=== PATIENT | female | born 1930 | race Caucasian/White ===

== ENCOUNTER → 2019-01-28 | Outpatient (REF) | payer MEDICARE, OTHER ==
[2019-01-28 18:49] LABS: APPEARANCE, URINE CLEAR (CLEAR); BACTERIA, URINE AUTO NEGATIVE (NEGATIVE); BILIRUBIN, URINE AUTO NEGATIVE (NEGATIVE); BLOOD, URINE BLOOD 1+ (NEGATIVE); COLOR, URINE YELLOW (YELLOW); GLUCOSE, URINE (UA) AUTO 3+ mg/dL (NEGATIVE); KETONE, URINE AUTO NEGATIVE (NEGATIVE); LEUKOCYTE ESTERASE, URINE AUTO NEGATIVE (NEGATIVE); MUCUS, URINE SMALL (NEGATIVE); NITRITE, URINE AUTO NEGATIVE (NEGATIVE); PROTEIN, URINE AUTO NEGATIVE (NEGATIVE); RBC, URINE AUTO 3 /HPF (0-3); SPECIFIC GRAVITY URINE AUTO 1.017 (1.002-1.035); SQUAMOUS EPITHELIAL CELL UR AU 1 /HPF (0-6); UROBILINOGEN, URINE AUTO 0.2 mg/dL (0.0-2.0); WBC, URINE AUTO 7 /HPF (0-3)
== END ==
LOC: M LAB REF 17:56
PROVIDERS: ATTEND Obstetrics & Gynecology
DX: N39.46 Mixed incontinence (principal); N81.12 Cystocele, lateral; N81.6 Rectocele

== ENCOUNTER → 2019-08-01 | Outpatient (CLI) | payer MEDICARE, OTHER ==
[~2019-08-01] MED LIST: ASPI81TA85 PO; ATEN50TA2 PO; ATOR1TAB21 PO; ESOM40CA35 PO; METF10004 PO; MULTCAP PO
== END ==
LOC: M LABSMTC 09:38
PROVIDERS: ATTEND Anesthesiology
DX: Z01.818 Encounter for other preprocedural examination (principal); Z11.59 Encounter for screening for other viral diseases
CPT/HCPCS: C9803; U0003

== ENCOUNTER 2019-08-04 09:06 | Day surgery (SDC) | payer MEDICARE, OTHER ==
[~2019-08-04] VITALS: Ht 160 cm; Wt 97.1 kg
[~2019-08-04 09:06] MED LIST changes: +LIDOCAINE 2% 100MG/5ML SDV (FOR ANES.) As Ordered ONE; +LR 1,000 ML IV ONE; +MIDAZOLAM INJ 2MG/2ML VIAL (J2250 PER 1MG) As Ordered ONE; +ROCURONIUM BROMIDE 50 MG/5 ML VIAL As Ordered ONE; +fentaNYL 250 MCG/5 ML INJECTION (J3010) As Ordered ONE; +propofoL 200 MG/20 ML VIAL As Ordered ONE
[2019-08-04] MEDS ORDERED: dexameTHASONE 4 MG/ML 1ML VIAL (J1100 PER 1MG) As Ordered ONE (11:35)
[2019-08-04] MEDS ORDERED: VASOPRESSIN INJ 20 UNITS/ML VIAL As Ordered ONE (11:38)
[2019-08-04] MEDS ORDERED: ceFAZolin 2 GM/D5W 50 ML IV BAG (J0690 PER 500MG) As Ordered ONE (12:16)
[2019-08-04] MEDS ORDERED: ePHEDrine SULFATE 25 MG/5 ML(5MG/ML) SYRINGE As Ordered ONE (12:19)
[2019-08-04] MEDS ORDERED: ACETAMINOPHEN 1000MG 100ML IV BTL (OFIRMEV) (J0131 PER 10MG) As Ordered ONE (12:21)
[2019-08-04] MEDS ORDERED: KETOROLAC 60 MG/2 ML VIAL As Ordered ONE (12:33)
[2019-08-04] MEDS ORDERED: ONDANSETRON 4MG/2ML VIAL As Ordered ONE (12:35)
[2019-08-04] MEDS ORDERED: ONDANSETRON 4MG/2ML VIAL IV PRN (13:15)
[2019-08-04] MEDS ORDERED: NORCO, ANEXSIA 5/325MG TABLET (HYDROcodone/ACETAMINOPHEN) PO PRN (13:15)
[2019-08-04] MEDS ORDERED: LR 1,000 ML IV SCH (13:15)
[2019-08-04] MEDS ORDERED: oxyCODONE 5MG TAB PO PRN (13:15)
[2019-08-04] MEDS ORDERED: fentaNYL 100 MCG/2 ML INJECTION (J3010) IV PRN (13:15)
[2019-08-04] MEDS ORDERED: IBUPROFEN 600 MG TAB PO PRN (13:15)
[2019-08-04 15:00] VITALS: BP 179/92
--- NOTE | 2019-08-09 11:57 | RO ---
DATE OF PROCEDURE: 08/04/2019 PREPROCEDURE DIAGNOSIS: Incontinence. POSTPROCEDURE DIAGNOSIS: Incontinence. PROCEDURE: Dosera mid urethral sling. This was retropubically placed bottom to top and cystourethroscopy. SURGEON: Dr. Ayse Xiao. HEEL LAYER: None. ANESTHESIA: Local monitored anesthesia, (LMA). DESCRIPTION OF PROCEDURE: Nury was brought to the operating room where sufficient LMA anesthesia was induced and she was prepped, draped in position in the usual sterile fashion with the Ryegate retractor placed. The anterior aspect of the vagina evaluated, carefully injected with diluted vasopressin solution and then a midline approximately 1.5 incision was made approximately 1 cm cephalad from the urethral meatus because this was a natural fold in the tissues. The Strully scissors were used to dissect laterally for the tracts for the trocar for the Dosera. Then after re-evaluating anatomical landmarks, we carefully placed first the right then the left side scoping the patient in between placement of each trocar. The after we had confirmed absence of injury to the bladder and the normal internal bladder contour and appearance with only a small cystocele of which the patient was aware of and did not want repaired. We went ahead and brought out each arm of the Dosera using a #8 Lindsay as a spacer and the red rubber stylette but then we brought it up a little bit snugger on that because the patient did have a little bit of weakness. We were careful about doing attention-free placement with the spacer but making sure we had that in exactly the position we wanted and then we removed the sheathing and trimmed the mesh, and of course, then removed the spacer. We closed the vaginal wound with #2-0 Vicryl and the suprapubic wounds with #3-0 Vicryl and we had good approximation of hemostasis both layers and the procedure was then ended. Estimated blood loss for the procedure about 10 mL. Fluid replacement was Crystalloid. Complication None: CONDITION AND DISPOSITION: Nury tolerated the procedure well and was recovering in the recovery room in good condition.
== END 2019-08-04 15:09 | disposition home or self-care (01) ==
LOC: M SDC 09:06
PROVIDERS: ATTEND Obstetrics & Gynecology
DX: R32 Unspecified urinary incontinence (principal); I10 Essential (primary) hypertension; E78.5 Hyperlipidemia, unspecified; E11.9 Type 2 diabetes mellitus without complications; K21.9 Gastro-esophageal reflux disease without esophagitis; G47.30 Sleep apnea, unspecified; Z79.82 Long term (current) use of aspirin; Z79.84 Long term (current) use of oral hypoglycemic drugs; Z79.899 Other long term (current) drug therapy
CPT/HCPCS: 57288; C1771; J0131; J0690; J1100; J1885; J2405; J3010